=== PATIENT | female | born 1945 | race Caucasian/White ===

== ENCOUNTER 2017-05-06 02:06 | Day surgery (SDC) | payer MEDICARE, OTHER ==
[~2017-05-06] VITALS: Ht 157.5 cm; Wt 79.4 kg
[~2017-05-06 02:06] MED LIST: CALC-852 PO; CHOL100052 PO; GLUC-198 PO; HCTZ25 PO; HYDR-4309 PO; HYDROCHLORTHIAZIDE PO; IBUP600T22 PO; KET10 PO; LISI-362 PO; LOR5/325 PO; MULT1TAB54 PO; NO PRESCRIPTION MEDS; PER PO
--- NOTE | 2017-05-06 06:19 | NACHTIGAL H&P ---
DATE OF ADMISSION: May 06, 2017 CHIEF COMPLAINT Bulge in the left groin. HISTORY OF PRESENT ILLNESS This is a 71-year-old female with a bulge in the left groin gradually increasing in size. ALLERGIES She has no known allergies. CURRENT MEDICATIONS 1. Calcium glucosamine. 2. Hydrochlorothiazide. 3. Lisinopril. 4. Multivitamin. 5. Vitamin D3. PAST MEDICAL HISTORY/OPERATIONS She has had a cataract operation, C section, colonoscopy, laparoscopic cholecystectomy, eye operation, thyroid operation, wrist reconstruction. REVIEW OF SYSTEMS She has hypertension, otherwise unremarkable. PHYSICAL EXAMINATION Physical examination reveals a 71-year-old female in no acute distress. Lungs: Clear. Heart: Regular rhythm. She has a reducible left inguinal hernia. IMPRESSION Left inguinal hernia. PLAN Repair. We discussed the procedure, complications and recovery time. She seems to understand and wishes to proceed. BERNY
[2017-05-06 06:27] LABS: PLATELET COUNT, AUTOMATED 278 K/uL (150-450)
[2017-05-06] MEDS ORDERED: NORMOSOL R SOLN(*) 1000 ML BAG 1,000 ML IV PRN (06:30)
[2017-05-06] MEDS ORDERED: FAMOTIDINE 20 MG TAB PO ONE (06:30)
[2017-05-06] MEDS ORDERED: ceFAZolin(*) 1 GM VIAL 1 GM in NS(*) 0.9% 100 ML ADDVANT BAG 100 ML IVPB ONE (06:30)
[2017-05-06] MEDS ORDERED: MIDAZOLAM 2 MG/2 ML VIAL IVP PRN (06:30)
[2017-05-06] MEDS ORDERED: LIDOCAINE/SOD BICARB 8.4% SYR ID ONE (06:30)
[2017-05-06] MEDS ORDERED: ROPIVACAINE 0.2% 20 ML VIAL ONE (06:47)
--- NOTE | 2017-05-06 06:52 | Post Operative Progress Note ---
Post Operative Progress Note Date: May 06, 2017 Time: 08:27 Surgeon: rachelle Anesthesia: dr parson Pre-Op Diagnosis: left inguinal hernia Post-Op Diagnosis: same direct Procedure(s): left inguinal hernia repair, CHRISTINA Lilly MD May 06, 2017 06:52
[2017-05-06] MEDS ORDERED: HYDR-4309 PO (06:53)
[2017-05-06] MEDS ORDERED: KET10 PO (06:53)
--- NOTE | 2017-05-06 06:55 | Short(Outpt) Discharge Summary ---
Discharge Summary Reason for Hosp/Final Diag: (1) Left inguinal hernia Hospital Course & Plan: left inguinal hernia repair, kugel, medium onflex mesh Departure Discharge to: Home Discharge Instructions Home Meds Active Scripts Hydrocodone Bit/Acetaminophen (NORCO 5-325 TABLET) 1 Each Tablet, 1 EACH PO Q4H Y for PAIN, #30 TAB Prov:CHRISTINA LARSON MD 05/06/17 Ketorolac Tromethamine (KETOROLAC TROMETHAMINE) 10 Mg Tab, 10 MG PO Q6H, #16 TAB Prov:CHRISTINA LARSON MD 05/06/17 Reported Medications Cholecalciferol (Vitamin D3) (VITAMIN D) 1,000 Unit Tablet, 1000 UNIT PO QDAY 03/24/15 Multivitamin (MULTI-VITAMIN DAILY) 1 Each Tablet, 1 EACH PO QDAY 03/24/15 Calcium Carbonate/Vitamin D3 (CALCIUM + VITAMIN D TABLET) 1 Each Tablet, 1 EACH PO QDAY 03/24/15 Glucosa Shi 2KCL/Chondroitin Shi (GLUCOSAMINE & CHONDROITIN CAP) 1 Each Capsule, 1 EACH PO QDAY, CAPSULE 03/24/15 Lisinopril (LISINOPRIL) 10 Mg Tablet, 10 MG PO QDAY 03/20/15 Hydrochlorothiazide (Hydrochlorothiazide) 25 Mg Tab, 25 MG PO QDAY 04/03/12 Discontinued Scripts Ibuprofen (IBUPROFEN) 600 Mg Tablet, 1 TAB PO Q6H for PAIN, #30 TAB Prov:QUEENIE KOLB MD 03/20/15 Diet: Regular Activity: No Heavy Lifting Special Instructions: ice to incision for 48 hours remove bandage and shower to see me in one week, call [phone] for apt CHRISTINA LARSON MD May 06, 2017 06:55
[2017-05-06] MEDS ORDERED: PROPOFOL EMUL(*) 10MG/ML 20 ML 20 ML ONE (06:57)
[2017-05-06] MEDS ORDERED: LIDOCAINE MPF 1% 5 ML VIAL ONE (06:57)
[2017-05-06] MEDS ORDERED: DEXAMETHASONE SOD 4 MG/ML VIAL ONE (06:57)
[2017-05-06] MEDS ORDERED: fentaNYL CITR 100 MCG/2 ML AMP ONE ×2 (06:57→08:50)
[2017-05-06] MEDS ORDERED: ONDANSETRON 4 MG/2 ML VIAL ONE (06:57)
[2017-05-06 07:04] VITALS: BP 140/78
[2017-05-06] MEDS ORDERED: BACITRACIN OINT 0.9 GM PKT TP ONE (07:29)
[2017-05-06] MEDS ORDERED: KETAMINE HCL 200 MG/20 ML MDV ONE (07:30)
[2017-05-06] MEDS ORDERED: ROCURONIUM BROM 10 MG/ML 5 ML ONE (07:30)
[2017-05-06] MEDS ORDERED: KETOROLAC 30 MG/ML VIAL ONE (08:06)
[2017-05-06] MEDS ORDERED: SUGAMMADEX SOD 200 MG/2 ML SDV ONE (08:06)
[2017-05-06 09:21] VITALS: BP 129/61
[2017-05-06 09:47] VITALS: BP 126/69
[2017-05-06] MEDS ORDERED: APAP/HYDROCODONE 325/5 TAB PO ONE (09:50)
--- NOTE | 2017-05-06 09:55 | OPERATIVE REPORT 1 ---
EVENT DATE: May 06, 2017 SURGEON: Luther Arteaga MD ANESTHESIOLOGIST: Ben Geller MD ANESTHESIA: General PREOPERATIVE DIAGNOSIS Left inguinal hernia. POSTOPERATIVE DIAGNOSIS Left direct inguinal hernia. PROCEDURE PERFORMED Left inguinal hernia repair, Kugel technique. DESCRIPTION OF PROCEDURE Patient was placed in the supine position, given general anesthetic. She was then placed slight Trendelenburg. Incision was made following skin lines a centimeter above the midpoint between the anterior superior iliac spine and the pubic tubercle. We went down through the skin and subcutaneous tissue, exposed the external oblique, opened the external oblique in the direction of its fibers , spread the internal oblique in the direction of its fibers. We then incised the transversalis fascia vertically, raised the inferior epigastric vessels, dissected in the preperitoneal space. We exposed the pubic tubercle, Olman's ligament. We dissected superiorly and laterally as well. We then dissected the peritoneum off the round ligament. There was no indirect inguinal hernia. Round ligament was clamped, divided and ligated with 2-0 Chromic reel. This then allowed us to dissect very nicely in the preperitoneal space. After exposure of the Olman's ligament, the vein in the internal ring, a medium OnFlex mesh 8.6 cm x 14.2 cm was placed into position in the retroperitoneal area. It covered the pubic tubercle, Olman's ligament, extended past the internal ring, laid flat without any sharp angulations. The transversalis fascia was reapproximated with 3-0 Vicryl incorporating the mesh. Internal oblique was closed with running 3-0 Vicryl. External oblique was closed with running 3-0 Vicryl. The subcu and muscle were infiltrated with 0.2% ropivacaine , 20 mL was used. Subcu was reapproximated with 4-0 Maxon. Skin was closed with interrupted 4-0 Maxon. Steri-Strips and Airstrip were placed. The patent tolerated the procedure well, no apparent complication. BERNY
[2017-05-06 10:04] VITALS: BP 133/85
[2017-05-06 10:08] VITALS: BP 119/72
== END 2017-05-06 09:21 | disposition home or self-care (01) ==
LOC: OR 02:06
PROVIDERS: ATTEND Surgery
DX: K40.90 Unilateral inguinal hernia, without obstruction or gangrene, not specified as recurrent (principal)
CPT/HCPCS: 36415; 49505; 85025; A9270; C1781; J0690; J1100; J1885; J2001; J2405; J2704; J2795; J3010; J3490; J7050; 82310; 82374; 82435; 82565; 82947; 84132; 84295; 84520; C9399

== ENCOUNTER → 2017-12-26 | Outpatient (CLI) | payer MEDICARE, OTHER ==
--- NOTE | 2017-12-26 17:58 | RADIOLOGY IMAGING REPORT ---
FACILITY: [facility] - [place] PATIENT NAME: Vania Mariee : 1945 MR: [id number] V: [id number] EXAM DATE: ORDERING PHYSICIAN: ALEENA QUIROGA TECHNOLOGIST: Location: [facility] [place] Patient: Vania Mariee : 1945 Visit/Account:[id number] Date of Sevice: 12/26/2017 2 VIEWS CHEST INDICATION: Cough. COMPARISON: None available FINDINGS: Cardiomediastinal silhouette and pulmonary vessels within normal limits. There is no focal infiltrate or lobar consolidation. There is no pneumothorax or pleural effusion. No nodule. Upper abdomen is unremarkable. No acute bony abnormality. IMPRESSION: 1. No acute cardiopulmonary process. Report Dictated By: Dylon Moses at 12/26/2017 5:54 PM Report E-Signed By: Dylon Moses at 12/26/2017 5:55 PM WSN:[id number]
== END ==
LOC: RAD 16:37
PROVIDERS: ATTEND Family Medicine
DX: R91.8 Other nonspecific abnormal finding of lung field (principal)
CPT/HCPCS: 71046

== ENCOUNTER → 2018-01-29 | Outpatient (CLI) | payer MEDICARE, OTHER ==
[~2018-01-29] MED LIST changes: -HYDR-4309 PO; +HYDR-653 PO
[2018-01-29 07:52] LABS: PLATELET COUNT, AUTOMATED 314 K/uL (150-450)
--- NOTE | 2018-01-29 11:24 | EKG ---
FAC[place] [facility] [place]IENT NAME: TONEY ACOSTA : [id number] MR: [id number] V: [id number] EXAM DATE: ORDERING PHYSICIAN: RASHI AGARWAL TECHNOLOGIST: ANGEL Test Reason : PRE OP Blood Pressure : / mmHG Vent. Rate : 108 BPM Atrial Rate : 108 BPM P-R Int : 132 ms QRS Dur : 078 ms QT Int : 336 ms P-R-T Axes : 060 003 023 degrees QTc Int : 450 ms Sinus tachycardia with occasional and consecutive premature ventricular complexes No ST-T abnormalities When compared with ECG of 04-DEC-2016 16:28, Relatively unchanged Confirmed by SIENA CORONA ([id number]) on 01/29/2018 12:49:25 PM Referred By: ANY Confirmed By:SIENA CORONA
== END ==
LOC: LAB 07:23
PROVIDERS: ATTEND Orthopaedic Surgery
DX: Z01.812 Encounter for preprocedural laboratory examination (principal); Z01.810 Encounter for preprocedural cardiovascular examination; M16.11 Unilateral primary osteoarthritis, right hip; E07.9 Disorder of thyroid, unspecified; I10 Essential (primary) hypertension; R00.0 Tachycardia, unspecified
CPT/HCPCS: 36415; 81001; 82040; 82247; 82310; 82374; 82435; 82565; 82947; 84075; 84132; 84155; 84295; 84443; 84450; 84460; 84520; 85025; 93005

== ENCOUNTER 2018-02-24 00:55 | Inpatient (IN) | payer MEDICARE, OTHER ==
[2018-02-23 16:52] LABS: INR 1.03
[~2018-02-24] VITALS: Ht 154.9 cm; Wt 74.4 kg
[2018-02-24] VITALS (12 sets, daily range): BP systolic 107–143; BP diastolic 57–87
[2018-02-24] MEDS ORDERED: ONDANSETRON 4 MG/2 ML VIAL ONE (09:05)
[2018-02-24] MEDS ORDERED: PROPOFOL EMUL(*) 10MG/ML 20 ML 20 ML ONE (09:05)
[2018-02-24] MEDS ORDERED: LIDOCAINE MPF 1% 5 ML VIAL ONE (09:05)
[2018-02-24] MEDS ORDERED: DEXAMETHASONE SOD 4 MG/ML VIAL ONE (09:06)
[2018-02-24] MEDS ORDERED: cloNIDine EPIDUR INJ 100MCG/ML 40 MCG, ROPIVACAINE 0.5% 20 ML VIAL 25 ML, EPINEPHrine H... INJ ONE (12:45)
[2018-02-24] MEDS ORDERED: NS(*) 0.9% 250 ML BAG 0 ML ONE (13:35)
[2018-02-24] MEDS ORDERED: ACETAMINOPHEN 500 MG TAB PO ONE (14:30)
[2018-02-24] MEDS ORDERED: BACITRACIN 50000 UNIT/VIAL 100,000 UNIT in NS 0.9% 3000 ML IRRIGATION BAG 3,000 ML IR ONE (14:30)
[2018-02-24] MEDS ORDERED: MIDAZOLAM 2 MG/2 ML VIAL IVP PRN (14:30)
[2018-02-24] MEDS ORDERED: CELECOXIB 200 MG CAP PO ONE (14:30)
[2018-02-24] MEDS ORDERED: PREGABALIN 75 MG CAPSULE PO ONE (14:30)
[2018-02-24] MEDS ORDERED: ceFAZolin(*) 2GM/D5W 50ML 50 ML IVPB ONE (14:30)
[2018-02-24] MEDS ORDERED: NORMOSOL R SOLN(*) 1000 ML BAG 1,000 ML IV PRN (14:30)
[2018-02-24] MEDS ORDERED: LIDOCAINE/SOD BICARB 8.4% SYR ID ONE (14:30)
[2018-02-24] MEDS ORDERED: FAMOTIDINE 20 MG TAB PO ONE (14:30)
[2018-02-24] MEDS ORDERED: TRANEXAMIC AC 1000 MG/10ML SDV 1,000 MG in DEXTROSE 5% 50 ML BAG 50 ML IV ONE (14:30)
[2018-02-24] MEDS ORDERED: fentaNYL CITR 100 MCG/2 ML AMP ONE (15:08)
[2018-02-24] MEDS ORDERED: NS 0.9% IRRIGATION 1000ML PLCT IR ONE (15:50)
--- NOTE | 2018-02-24 16:53 | RADIOLOGY IMAGING REPORT ---
[place] [facility] [place] NAME: Vania Mariee : 1945 MR: [id number] V: [id number] EXAM DATE: ORDERING PHYSICIAN: RASHI AGARWAL TECHNOLOGIST: Location: [facility] Patient: Vania Mariee : 1945 Visit/Account:[id number] Date of Sevice: 02/24/2018 Exam type: HIP IN OR RIGHT History: Right total hip arthroplasty Comparison: December 04, 2016. Findings: There is a trial right hip arthroplasty that appears in good anatomic alignment on this single obliqu e view. IMPRESSION: 1. As above Report Dictated By: Tabatha Quinonez MD at 02/24/2018 4:48 PM Report E-Signed By: Tabatha Quinonez MD at 02/24/2018 4:49 PM WSN:[email or web address]
[2018-02-24] MEDS ORDERED: ceFAZolin 1 GM VIAL ONE (17:10)
[2018-02-24] MEDS ORDERED: ZOLPIDEM TARTRATE 5 MG TAB PO PRN (18:30)
[2018-02-24] MEDS ORDERED: HYDROmorphone HCL 2 MG/ML SDV IVP PRN (18:30)
[2018-02-24] MEDS ORDERED: diphenhydrAMINE 50 MG/ML VIAL IVP PRN (18:30)
[2018-02-24] MEDS ORDERED: BISACODYL 10 MG SUPP PR PRN (18:30)
[2018-02-24] MEDS ORDERED: MAGNESIUM CITRATE 300 ML BTL PO PRN (18:30)
[2018-02-24] MEDS ORDERED: ONDANSETRON 4 MG/2 ML VIAL IVP PRN (18:30)
[2018-02-24] MEDS ORDERED: LR 1000 ML BAG 1000 ML IV PRN (18:30)
[2018-02-24] MEDS ORDERED: FLUSH 10 ML SYR IVP PRN (18:30)
[2018-02-24] MEDS ORDERED: diphenhydrAMINE 25 MG CAP PO PRN (18:30)
[2018-02-24] MEDS ORDERED: PROMETHAZINE 25 MG/ML 1 ML AMP IVP PRN (18:30)
[2018-02-24] MEDS: ASPIRIN 325 MG TAB PO SCH (20:10)
--- NOTE | 2018-02-24 21:27 | Hospitalist Progress Note ---
Subjective Progress Notes Subjective No cp/sob. 2000cc of crystalloid, dexamethasone, ephedrine and TXA given intra- op. Lowest BP was 70/40 intra-op. Physical Exam Vital Signs Date Time Temp Pulse Resp B/P (MAP) Pulse Ox O2 Delivery O2 Flow Rate FiO2 02/24/18 20:24 96.5 107 17 115/59 (77) 97 Nasal Cannula 2.0 General Appearance: Alert, Awake, No Acute Distress Cardiovascular: Other (tachy, regular, no m/r/g) Respiratory: Clear to Auscultation Extremities: No Edema Assessment and Plan Problems: (1) Status post hip replacement Status: Acute Assessment & Plan: No pulmonary concerns. She denies a h/o of DVT/PE. She will be on ASA 325mg a day for 30 days after surgery for blood clot prevention. BMP tomorrow. (2) Sinus tachycardia Status: Acute Assessment & Plan: Her pre-op ECG had a sinus tachycardia at 108 bpm. At her pre-op evaluation, her heart rate was in the 80's. TSH in January was 3.13. No worrisome symptoms. Will follow. (3) HTN (hypertension) Status: Chronic Assessment & Plan: Continue chronic HCTZ and lisinopril with parameters. Problem Qualifiers (1) Status post hip replacement: Laterality: right Qualified Codes: Z96.641 - Presence of right artificial hip joint SIENA CORONA MD Feb 24, 2018 21:27
[2018-02-24] MEDS ORDERED: BENZOCAINE/MENTHOL 1 EACH LOZG ONE (22:55)
[2018-02-24] MEDS: ceFAZolin(*) 1 GM VIAL 1 GM in NS(*) 0.9% 100 ML ADDVANT BAG 100 ML IVPB SCH (22:57)
[2018-02-24] MEDS: MAGNESIUM HYDROXIDE* 30ML UDCP PO PRN (22:57)
--- NOTE | 2018-02-24 23:19 | RADIOLOGY IMAGING REPORT ---
FACILITY: [facility] PATIENT NAME: Vania Mariee : 1945 MR: [id number] V: [id number] EXAM DATE: ORDERING PHYSICIAN: RASHI AGARWAL TECHNOLOGIST: Location: [facility] Patient: Vania Mariee : 1945 Visit/Account:[id number] Date of Sevice: 02/24/2018 Pelvis: Indication: Postop evaluation. Technique: A single frontal image was obtained. Comparison: An operative image from earlier the same day. Findings: The right femoral head and neck were resected. The acetabular and femoral components of the right hip prosthesis are in satisfactory position and alignment. There is a small amount of air in t he periarticular soft tissues. The skeletal and soft tissue structures are otherwise unremarkable. Impression: Satisfactory postop appearance. Report Dictated By: Danny Tafoya MD at 02/24/2018 11:15 PM Report E-Signed By: Danny Tafoya MD at 02/24/2018 11:16 PM WSN:[id number]
[2018-02-25] VITALS: BP 102/52
--- NOTE | 2018-02-25 00:27 | OPERATIVE REPORT 1 ---
EVENT DATE: February 24, 2018 SURGEON: Jeremiah Unger MD ANESTHESIOLOGIST: Lopez Poole MD ANESTHESIA: General LMA combined with a spinal. BIOINFORMATICS SUPPORT SPECIALIST: Drew Chandra PA-C PREOPERATIVE DIAGNOSIS Right hip osteoarthritis. POSTOPERATIVE DIAGNOSIS Right hip osteoarthritis. PROCEDURE PERFORMED Right total hip arthroplasty. ESTIMATED BLOOD LOSS About 250 mL. DRAINS None. SPECIMENS None. COMPLICATIONS Loosened cup, which had to be replaced, and a screw that cut out, and so therefore we had to replace the entire cup associated with this and put in an elevated liner secondary to the fact that patient's girth caused the leg to dislocate easily without the elevated lip liner. TOURNIQUET TIME Not applicable. IMPLANTS USED Samuel size 9 stem with a standard ML taper stem, a size 36 head, a 56 cluster hole shell, and an elevated limb liner to fit a 36 head with the elevation pointed in the backside. FINDINGS The patient had a significant amount of arthritic changes associated with her hip, but was amenable for a total hip. INDICATIONS AND HISTORY This patient is a 72-year-old female who presented to my clinic for evaluation of right hip pain and irritation going on for some time. She continued to have pain and irritation associated with it, and was not getting any better with continued conservative care, and so she wanted to go ahead with a total hip arthroplasty, since an injection helped her quite a bit. We went over the risks and benefits associated with this, and informed consent was obtained. We talked about how this may not completely help her, and she may have complications given her body habitus associated with it. After discussion of those risks and benefits, informed consent was obtained at the last clinic visit. DESCRIPTION OF PROCEDURE The patient was brought in to the operating room. She and the procedure were both verified. She was placed supine on the operating table and induced and intubated by Anesthesia. After being given a spinal, the patient was then turned to the lateral decubitus position, where the right hip was prepped and draped in the usual fashion, and a time-out was observed, verifying the correct patient and procedure. The standard incision was made over the posterolateral hip. It was taken through the skin and subcutaneous tissue, and then i was able to go through the gluteal musculature after going through the significant amount of subcutaneous fat. Once I was able to get to the IT band and the gluteal musculature, I was then able to identify the short external rotators. We cut the piriformis and tagged it for later repair, and then cut some of the short external rotators on this, and then were able to cut the capsule without any major difficulty in a T- shaped fashion in order to dislocate the hip. Once I was able to dislocate the hip, I was then able to make the femoral cut in the standard fashion without any major difficulty. I then turned attention to the acetabulum, where there was difficult visualization due to the soft tissue envelope, but I was able to get pretty good retraction associated with this. We removed the labrum without any major difficulty, and then were able to ream starting with a small 44 mm reamer and then all the way up to a 55 mm reamer. We then put in a 56 mm cup and then put a screw in this. It looked to be in good position at the time. We were then able to put a 35 mm screw in this area, and then put in a standard liner without any major difficulty. I then turned attention to the femur, where we were able to put in a box cutting osteotome followed by a canal-finding reamer, then followed by a lateralizing reamer, and then the standard stem broaches. We went from a 4 up to a 9. This had good fit associated with it and no signs of problems associated with it. I then was able to put on a standard head and neck. We relocated it and it looked good from the standpoint of leg lengths and on the intraoperative x-rays, but unfortunately, with the instability test with flexion and internal rotation, it popped out very easily. We therefore had to go in and remove the other cup. The screw did cut out a little bit as we removed this, but we were able to get it in decent position. I was then able to remove this cup. Unfortunately, we had to get a new cup, as we could not get the liner out without damaging the cup. Therefore, a new cup was then placed into the area, and the screw did perforate through mail, and so we did have to remove some instrumentations and given her another dose of antibiotics. Once we were able to put the new cup in, I was then able to place another 35 mm screw up into the superior aspect and then was able to put in an elevated lip liner on this area, and then use a 36 trial head. This then allowed for more stability. She still dislocated with flexion with about 40 or 50 degrees of internal rotation secondary to just the girth of her thighs. We were then able to irrigate with copious amounts of saline, which I had throughout the case. We went through 4L of saline in entirety. I was then able to close the posterior capsule with a heavy Ethibond, and then I put the short external rotators and piriformis through the posterior femur by just poking the needle through the bone, as there was fairly soft bone in this area. This was then followed by irrigation again with copious amounts of saline and closure of the gluteal musculature and the IT band with a #2 Quill. This was then followed by 2-0 Vicryl in the subcutaneous tissue and a 2-0 Stratafix in the subcutaneous tissue. I then put a 4-0 Monocryl running subcuticular stitch through the skin. The wound was anesthetized with a pain cocktail without the ketorolac in it, and then also from the spinal. We then dressed her with Steri-Strips, gauze, 4x4s, a soft dressing, and a hip wrap, and the patient was awakened and extubated and transferred to the PACU in stable condition. BERNY
[2018-02-25 01:00] VITALS: BP 93/40
[2018-02-25 03:40] VITALS: BP 110/87
[2018-02-25] MEDS: ceFAZolin(*) 1 GM VIAL 1 GM in NS(*) 0.9% 100 ML ADDVANT BAG 100 ML IVPB SCH ×2 (06:23→14:27)
[2018-02-25 06:45] VITALS: BP 107/61
[2018-02-25] MEDS: HYDROCHLOROTHIAZIDE 25 MG TAB PO SCH (08:39)
[2018-02-25] MEDS: MAGNESIUM HYDROXIDE* 30ML UDCP PO PRN ×2 (08:40→22:31)
[2018-02-25] MEDS: LISINOPRIL 10 MG TAB PO SCH (08:40)
--- NOTE | 2018-02-25 09:23 | Hospitalist Progress Note ---
Subjective Progress Notes Subjective She has no complaints this morning. She had no acute events overnight. Patient Complains of: Cardiovascular: No: Chest Pain Respiratory: No: Shortness of Breath Physical Exam Vital Signs Date Time Temp Pulse Resp B/P (MAP) Pulse Ox O2 Delivery O2 Flow Rate FiO2 02/25/18 08:29 94 Nasal Cannula 2.0 02/25/18 06:45 98.2 93 16 107/61 (76) Intake and Output 02/25/18 06:59 Intake Total 2150 ml Balance 2150 ml Intake IV Total 2150 ml # Voids 2 General Appearance: Alert, Awake, No Acute Distress, Afebrile Neuro: No Gross deficits Cardiovascular: Regular Rate and Rhythm Respiratory: No Respiratory Distress, Clear to Auscultation Psych: Alert & Oriented X3, Appropriate Mood & Affect Result Diagram: 02/25/1853702/25/18537 Assessment and Plan Problems: (1) Status post hip replacement Status: Acute Assessment & Plan: No pulmonary concerns. She denies a h/o of DVT/PE. She will be on ASA 325mg a day for 30 days after surgery for blood clot prevention. (2) Sinus tachycardia Status: Acute Assessment & Plan: Her pre-op ECG had a sinus tachycardia at 108 bpm. At her pre-op evaluation, her heart rate was in the 80's. TSH in January was 3.13. No worrisome symptoms. Will follow. (3) HTN (hypertension) Status: Chronic Assessment & Plan: Continue chronic HCTZ and lisinopril with parameters. Exam Sepsis Risk: No Definite Risk Problem Qualifiers (1) Status post hip replacement: Laterality: right Qualified Codes: Z96.641 - Presence of right artificial hip joint IGNACIA SMITH ANALYTICAL CHEMIST Feb 25, 2018 09:23
[2018-02-25 18:04] VITALS: Ht 154.9 cm; Wt 74.4 kg
[2018-02-25 18:41] VITALS: BP 111/58
[2018-02-25] MEDS: ASPIRIN 325 MG TAB PO SCH (20:47)
[2018-02-26 04:49] VITALS: BP 133/64
[2018-02-26] MEDS ORDERED: OXYC-865 PO (07:13)
[2018-02-26 07:24] VITALS: BP 118/52
[2018-02-26] MEDS ORDERED: ASPI-757 PO (08:32)
[2018-02-26] MEDS: HYDROCHLOROTHIAZIDE 25 MG TAB PO SCH (09:00)
[2018-02-26] MEDS: LISINOPRIL 10 MG TAB PO SCH (09:00)
--- NOTE | 2018-02-26 10:54 | Hospitalist Progress Note ---
Subjective Progress Notes Subjective She has no complaints this morning. She had no acute events overnight. She would like to go home today. Patient Complains of: Cardiovascular: No: Chest Pain Respiratory: No: Shortness of Breath Physical Exam Vital Signs Date Time Temp Pulse Resp B/P (MAP) Pulse Ox O2 Delivery O2 Flow Rate FiO2 02/26/18 07:24 98.5 103 20 118/52 (74) 96 Nasal Cannula 0.5 Intake and Output 02/26/18 07:00 Intake Total 1220 ml Balance 1220 ml Intake Oral 1220 ml # Voids 6 # Bowel Movements 2 General Appearance: Alert, Awake, No Acute Distress, Afebrile Neuro: No Gross deficits Cardiovascular: Regular Rate and Rhythm Respiratory: No Respiratory Distress, Clear to Auscultation Psych: Alert & Oriented X3, Appropriate Mood & Affect Result Diagram: 02/26/18 0523 02/25/18 0538 Assessment and Plan Problems: (1) Status post hip replacement Status: Acute Assessment & Plan: No pulmonary concerns. She denies a h/o of DVT/PE. She will be on ASA 325mg a day for 30 days after surgery for blood clot prevention. (2) Sinus tachycardia Status: Acute Assessment & Plan: Her pre-op ECG had a sinus tachycardia at 108 bpm. At her pre-op evaluation, her heart rate was in the 80's. TSH in January was 3.13. No worrisome symptoms. (3) HTN (hypertension) Status: Chronic Assessment & Plan: Continue chronic HCTZ and lisinopril with parameters. Exam Sepsis Risk: No Definite Risk Problem Qualifiers (1) Status post hip replacement: Laterality: right Qualified Codes: Z96.641 - Presence of right artificial hip joint IGNACIA SMITH DIRECTOR RETIREMENT Feb 26, 2018 10:54
== END 2018-02-26 14:07 | disposition home or self-care (01) | DRG 470 ==
LOC: OR 00:55 → MED 19:25
PROVIDERS: ADMIT Orthopaedic Surgery; ATTEND Orthopaedic Surgery
PROC: 0SR90JA Replacement of Right Hip Joint with Synthetic Substitute, Uncemented, Open Approach (ICD-10-PCS; principal; 2018-02-24 14:49)
DX: M16.11 Unilateral primary osteoarthritis, right hip (principal); I10 Essential (primary) hypertension; R00.0 Tachycardia, unspecified
CPT/HCPCS: 36415; 72170; 82310; 82374; 82435; 82565; 82947; 84132; 84295; 84520; 85014; 85018; 85610; 86850; 86900; 86901; 97161; 97165; C1713; C1776; J0171; J0690; J0735; J1100; J2001; J2250; J2405; J2704; J2795; J3010; J7050; J7060

== ENCOUNTER → 2018-08-24 | Outpatient (CLI) | payer MEDICARE, OTHER ==
[2018-02-25 18:04] VITALS: BMI 31.0
[~2018-08-24] MED LIST changes: +ASPI-757 PO; +OXYC-865 PO
--- NOTE | 2018-08-24 16:11 | RADIOLOGY IMAGING REPORT ---
[place] [facility] [place]: Vania Mariee : 1945 MR: [id number] V: [id number] EXAM DATE: ORDERING PHYSICIAN: ALEENA QUIROGA TECHNOLOGIST: Location: [facility] - [place] Patient: Vania Mariee : 1945 Visit/Account:[id number] Date of Sevice: 08/24/2018 THYROID HISTORY: Thyroid nodules COMPARISON: May 31, 2016 FINDINGS: SIZE: Right lobe: Surgically absent Left lobe: 4.9 x 1.8 x 1.6 cm Isthmus: 2 mm PARENCHYMA: Homogeneous. NODULES: Left lobe: * Again noted in the mid left lobe is a spongiform nodule measuring 2.2 x 1.5 x 1.4 cm previously me asuring 2.4 x 1.5 x 1.3 cm. In the inferior left pole there is a 7 mm partially cystic nodule. In t he mid left lobe there is a homogeneous isoechoic nodule with partial rim calcifications measuring 9 mm and appears unchanged Isthmus: * None discrete. VASCULARITY: Within normal limits. ADDITIONAL FINDINGS: None. IMPRESSION: Again noted is the spongiform nodule in the mid left lobe measuring 2.2 x 1.5 x 1.4 cm, previously me asuring 2.4 x 1.5 x 1.3 cm. This is not significantly changed REFERENCE: 2015 [place] [employer] Management Guidelines for Adult Patients with Thyroid Nodules and D ifferentiated Thyroid Cancer: The [place] [employer] Guidelines Task Force on Thyroid Nodul es and Differentiated Thyroid Cancer. SONOGRAPHIC PATTERNS: * Benign: Purely cystic nodules (no solid component); estimated risk of malignancy <1 percent; no bi opsy recommended. * Very Low Suspicion: Spongiform or partially cystic nodules without any of the sonographic features described in low, intermediate, or high suspicion patterns; estimated risk of malignancy <3 percent; consider FNA at > 2 cm (Observation without FNA is also a reasonable option). * Low Suspicion: Isoechoic or hyperechoic solid nodule, or partially cystic nodule with eccentric so lid areas, without microcalcification, irregular margin or ETE (extra-thyroidal extension), or taller than wide shape; estimated risk of malignancy 5-10 percent; recommend FNA at >1.5 cm. * Intermediate Suspicion: Hypoechoic solid nodule with smooth margins without microcalcifications, E TE (extra-thyroidal extension), or taller than wide shape; estimated risk of malignancy 10-20 percent ; recommend FNA at > 1 cm. * High Suspicion: Solid hypoechoic nodule or solid hypoechoic component of a partially cystic nodule with one or more of the following features: irregular margins (infiltrative, microlobulated), microc alcifications, taller than wide shape, rim calcifications with small extrusive soft tissue component, evidence of ETE (extra-thyroidal extension); estimated risk of malignancy >70-90 percent; recommend FNA at > 1 cm. NOTES: * Although a sonographically suspicious subcentimeter thyroid nodule without evidence of extrathyroi mary extension or sonographically suspicious lymph nodes may be observed with close sonographic follow -up rather than pursuing immediate FNA, patient age and preference may modify decision-making. A > 50% interval increase in nodule volume and/or development of new suspicious sonographic features are felt to be a valid reasons for potential re-aspiration of a nodule previously shown to have benig n FNA cytology. Report Dictated By: Tabatha Quinonez MD at 08/24/2018 3:59 PM Report E-Signed By: Tabatha Quinonez MD at 08/24/2018 4:06 PM WSN:[email or web address]
== END ==
LOC: US 01:12
PROVIDERS: ATTEND Family Medicine
DX: E04.1 Nontoxic single thyroid nodule (principal)
CPT/HCPCS: 76536

== ENCOUNTER → 2018-09-15 | Outpatient (CLI) | payer MEDICARE, OTHER ==
[2018-02-25 18:04] VITALS: BMI 31.0
--- NOTE | 2018-09-16 09:20 | RADIOLOGY IMAGING REPORT ---
FACILITY: [facility] - [place] PATIENT NAME: TONEY ACOSTA : [id number] MR: [id number] V: [id number] EXAM DATE: [id number] ORDERING PHYSICIAN: ALEENA QUIROGA TECHNOLOGIST: Yesy Nice PROCEDURE: BILATERAL DIGITAL SCREENING MAMMOGRAM WITH CAD ASSISTED INTERPRETATION & 3D TOMOSYNTHESIS. REASON FOR STUDY: Screening. FAMILY HISTORY OF BREAST CANCER: None. BREAST PROCEDURES/TREATMENTS: None. COMPARISON: 08/22/15, 07/19/14, 01/04/13, 01/02/12. VIEWS OBTAINED: Bilateral 2D & 3D full field CC & MLO projections. BREAST DENSITY: There are scattered areas of fibroglandular density throughout the breasts. MAMMOGRAM FINDINGS: There is a focal asymmetry in the lateral portion of the Left breast in the Left CC view in the middle 1/3 for which Spot compression view is recommended. This is best appreciated on Tomographic slice 19. IMPRESSION: BIRADS 0: Incomplete. Additional views of the Left breast recommended. DIAGNOSTIC CATEGORY 0--INCOMPLETE: NEED ADDITIONAL IMAGING EVALUATION. RECOMMENDATIONS: ADDITIONAL MAMMOGRAPHIC VIEWS REQUIRED: LEFT BREAST. Dictated by: Tabatha Quinonez M.D. on 09/15/2018 at 17:06 Transcribed by: ISADORA on 09/16/2018 at 7:58 Approved by: Tabatha Quinonez M.D. on 09/16/2018 at 9:16 [facility]
== END ==
LOC: MAMO 00:42
PROVIDERS: ATTEND Family Medicine
DX: Z12.31 Encounter for screening mammogram for malignant neoplasm of breast (principal); R92.8 Other abnormal and inconclusive findings on diagnostic imaging of breast
CPT/HCPCS: 77063; 77067

== ENCOUNTER → 2018-10-07 | Outpatient (CLI) | payer MEDICARE, OTHER ==
[2018-02-25 18:04] VITALS: BMI 31.0
--- NOTE | 2018-10-07 13:50 | RADIOLOGY IMAGING REPORT ---
FACILITY: [facility] [place] PATIENT NAME: TONEY ACOSTA : [id number] MR: [id number] V: [id number] EXAM DATE: [id number] ORDERING PHYSICIAN: ALEENA QUIROGA TECHNOLOGIST: Cindy Donaldson PROCEDURE:LEFT DIGITAL MAMMOGRAM DIAGNOSTIC REASON FOR STUDY: Focal asymmetry of Left breast COMPARISON STUDIES: 09/15/2018. MAMMOGRAM VIEWS OBTAINED: Left breast Spot compression CC, and Left breast mediolateral lateral views. BREAST DENSITY: Scattered fibroglandular tissue densities. MAMMOGRAM FINDINGS: The previously seen focal asymmetry does not persist on Spot compression views. ULTRASOUND AREA SCANNED: Left breast in the 1-5 o'clock position. ULTRASOUND FINDINGS: Normal fibroglandular tissue elements are seen. There is no suspicious mass. DIAGNOSTIC CATEGORY 2--BENIGN FINDING. RECOMMENDATIONS: ROUTINE MAMMOGRAM AND CLINICAL EVALUATION IN 1YR. IMPRESSION: BIRADS 2: Benign finding. Previously seen focal asymmetry represented overlying fibroglandular tissue elements. This was discussed with the patient by Dr. Huynh. Dictated by: Prakash Huynh M.D. on 10/07/2018 at 10:06 Transcribed by: ISADORA on 10/07/2018 at 10:27 Approved by: Prakash Huynh M.D. on 10/07/2018 at 13:44 [facility]
--- NOTE | 2018-10-13 10:49 | RADIOLOGY IMAGING REPORT ---
FACILITY: [facility] - [place] PATIENT NAME: TONEY ACOSTA : [id number] MR: [id number] V: [id number] EXAM DATE: ORDERING PHYSICIAN: ALEENA QUIROGA TECHNOLOGIST: Ruddy Hernadez RDMS, NEVAEH PROCEDURE:US LEFT BREAST COMPARISON:None. INDICATIONS: FINDINGS: This was dictated on the mammo report from 10/07/2018. DIAGNOSTIC CATEGORY 1--NEGATIVE. RECOMMENDATIONS: ROUTINE MAMMOGRAM AND CLINICAL EVALUATION. IMPRESSION: BIRADS 1: Negative. Dictated by: Prakash Huynh M.D. on 10/07/2018 at 12:39 Transcribed by: ISADORA on 10/09/2018 at 9:59 Approved by: Prakash King on 10/13/2018 at 10:44 [facility]
== END ==
LOC: MAMO 01:02
PROVIDERS: ATTEND Family Medicine
DX: R92.2 Inconclusive mammogram (principal)
CPT/HCPCS: 77061; 77065